=== PATIENT | female | born 1935 | race Caucasian/White ===

== ENCOUNTER 2018-07-05 08:56 | Observation (INO) | payer MEDICARE ==
[~2018-07-05] VITALS: Ht 170.2 cm; Wt 62.7 kg
--- NOTE | 2018-07-05 09:08 | NUR ---
BIB [facility] FROM [facility]. PT W/ EPIGASTRIC/SUB STERNAL CP. PT PRESENTS NOW WITH NO CP, VSS, ALL MONITORS PLACED. DR ENAMORADO AT BEDSIDE, ASSESSMENT REVIEWED AND ORDERS REC'D. PT CALL LIGHT W/I REACH
[2018-07-05] MEDS ORDERED: OMEP20TA62 PO (09:09)
[2018-07-05] MEDS ORDERED: SIMV20TA3 PO (09:09)
[2018-07-05] MEDS ORDERED: TELM1TAB25 PO (09:09)
[2018-07-05] MEDS ORDERED: HYDR-3307 PO (09:09)
--- NOTE | 2018-07-05 09:09 | NUR ---
Patient brought in by EMS as a transfer from [place]. Initially, patient was elevated for chest pain as she reported epigastric abdominal pain intermittently x2 weeks worsening beginning yesterday and becoming intense at 0300 this morning. Patient reports pain is often worse after eating. Patient states she was diagnosed with liver cirrhosis 4 months ago and stopped drinking alcohol in April 2018. Patient arrives alert and appropriate, no apparent distress, denies pain at this time. IV x2 established prior to arrival. Patient received aspirin 325mg prior to arrival, nitroglycerin 0.4mg, zofran 4mg IV push as reported by EMS. Continuous blood pressure, SPO2 and cardiac monitoring in place, call dominguez withinr each. Dr. Tejeda at bedside evaluating patient.
--- NOTE | 2018-07-05 09:49 | NUR ---
bs report from jerson Garcia. pt resting in room. no needs at this time. call light within reach.
--- NOTE | 2018-07-05 09:58 | NUR ---
per edmd, ok to have water. water provided.
[2018-07-05 10:01] LABS: INTERNATIONAL NORMALIZED RATIO 0.96 (0.93-1.1); PROTHROMBIN TIME 10.1 Seconds (9.6-11.5)
[2018-07-05 10:12] LABS: TROPONIN I < 0.015 ng/mL (0.000-0.045)
[2018-07-05] MEDS ORDERED: ONDANSETRON 2MG/ML, 2ML IVPush PRN (10:30)
[2018-07-05] MEDS ORDERED: ACETAMINOPHEN 325 MG TABLET PO PRN (10:30)
[2018-07-05] MEDS ORDERED: FAMOTIDINE 20 MG/2 ML IVPush SCH (10:30)
[2018-07-05] MEDS ORDERED: LABETALOL 5MG/ML, 20ML IVPush PRN (10:30)
[2018-07-05] MEDS ORDERED: hydrALAzine 20 MG/ML, 1ML IVPush PRN (10:30)
[2018-07-05 11:02] LABS: ALANINE AMINOTRANSFERASE 294 U/L (12-78); ALBUMIN 3.2 g/dL (3.4-5.0); BILIRUBIN, DIRECT 3.5 mg/dL (0.1-0.2)
[2018-07-05 11:06] LABS: ALKALINE PHOSPHATASE 183 U/L (45-117); BILIRUBIN,TOTAL 4.5 mg/dL (0.2-1.0); TOTAL PROTEIN 6.6 g/dL (6.4-8.2); TROPONIN I < 0.015 ng/mL (0.000-0.045)
[2018-07-05 11:37] VITALS: BP 106/65
[2018-07-05] MEDS ORDERED: FAMOTIDINE 20 MG TABLET ONE (12:10)
[2018-07-05] MEDS: FAMOTIDINE 20 MG TABLET PO SCH ×2 (12:13→21:00)
[2018-07-05 13:03] VITALS: BP 104/73
[2018-07-05] MEDS ORDERED: REGADENOSON 0.4 MG/5 ML SYRINGE ONE (13:46)
[2018-07-05 16:23] LABS: TROPONIN I < 0.015 ng/mL (0.000-0.045)
[2018-07-05 20:08] VITALS: BP 107/71
[2018-07-05] MEDS ORDERED: SIMVASTATIN 20 MG TABLET PO SCH (21:00)
[2018-07-06 03:20] VITALS: BP 96/60
[2018-07-06 05:44] LABS: BASOPHILS # (AUTO) 0.01 x10^3/uL (0-0.1); BASOPHILS % (AUTO) 0 % (0-1); EOSINOPHILS # (AUTO) 0.04 x10^3/uL (0-0.4); EOSINOPHILS % (AUTO) 1 % (1-7); LYMPHOCYTES # (AUTO) 0.77 x10^3/uL (1-3.4); LYMPHOCYTES % (AUTO) 13 % (22-44); MD NO; MEAN CORPUSCULAR HEMOGLOBIN 32.3 pg (27.0-34.8); MEAN CORPUSCULAR HGB CONC 33.5 g/dL (32.4-35.8); MEAN CORPUSCULAR VOLUME 96.5 fL (80-100); MEAN PLATELET VOLUME 8.1 fL (7.4-10.4); MONOCYTES # (AUTO) 0.57 x10^3/uL (0.2-0.8); MONOCYTES % (AUTO) 9 % (2-9); NEUTROPHILS # (AUTO) 4.72 x10^3/uL (1.8-6.8); NEUTROPHILS % (AUTO) 77 % (42-75); PLATELET COUNT 242 x10^3/uL (130-400); RED BLOOD COUNT 4.54 x10^6/uL (3.82-5.3); RED CELL DISTRIBUTION WIDTH 12.8 % (9.6-15.2)
[2018-07-06 05:57] LABS: ANION GAP 7 mmol/L (5-15); CALCIUM 8.7 mg/dL (8.5-10.1); CHLORIDE 104 mmol/L (98-107); CREATININE 1.09 mg/dL (0.55-1.02)
[2018-07-06] MEDS ORDERED: OMEPRAZOLE 20 MG CAPSULE.DR PO SCH (07:30)
[2018-07-06 08:00] VITALS: BP 113/78
[2018-07-06] MEDS: FAMOTIDINE 20 MG TABLET PO SCH (08:12)
[2018-07-06 08:13] LABS: ALBUMIN 2.8 g/dL (3.4-5.0); BILIRUBIN, DIRECT 0.8 mg/dL (0.1-0.2)
[2018-07-06 08:15] LABS: BILIRUBIN,TOTAL 1.8 mg/dL (0.2-1.0)
[2018-07-06] MEDS ORDERED: HYDROCHLOROTHIAZIDE 12.5 MG CAPSULE PO SCH (09:00)
[2018-07-06] MEDS ORDERED: LOSARTAN 50MG TABLET PO SCH (09:00)
== END 2018-07-06 12:05 | disposition home or self-care (01) ==
LOC: ED 10:03 → EDIP 10:04 → ED 10:48 → 5SO 11:33 → DCLOUNGE 07-06 11:54
PROVIDERS: ADMIT Hospitalist; ATTEND Hospitalist
DX: R07.89 Other chest pain (principal); E78.5 Hyperlipidemia, unspecified; I10 Essential (primary) hypertension; K70.40 Alcoholic hepatic failure without coma; K74.60 Unspecified cirrhosis of liver; N17.9 Acute kidney failure, unspecified; Z87.891 Personal history of nicotine dependence; Z90.710 Acquired absence of both cervix and uterus
CPT/HCPCS: 36415; 76700; 78452; 80048; 80076; 83690; 83735; 84100; 84443; 84484; 85025; 85610; 85730; 93005; 93017; 93306; 99284; A9502; C9898; G0378; J2785

== ENCOUNTER 2018-10-06 12:31 | Day surgery (SDC) | payer MEDICARE ==
[~2018-10-06] VITALS: Ht 172.7 cm; Wt 56.5 kg
[~2018-10-06 12:31] MED LIST: HYDR-36 PO; OMEP20TA62 PO; SIMV20TA3 PO; TELM1TAB25 PO
[2018-10-06 13:08] VITALS: BP 157/104
[2018-10-06] MEDS ORDERED: tylenol pm PO (13:12)
[2018-10-06] MEDS ORDERED: FENTANYL PF 100 MCG/2ML ONE (16:20)
[2018-10-06] MEDS ORDERED: GLYCOPYRROLATE 0.2MG/1ML, 5ML ONE (17:00)
[2018-10-06] MEDS ORDERED: ONDANSETRON 2MG/ML, 2ML ONE (17:00)
[2018-10-06] MEDS ORDERED: DEXAMETHASONE 4 MG/ML, 1ML ONE (17:00)
[2018-10-06] MEDS ORDERED: NEOSTIGMINE 1 MG/ML, 10ML ONE (17:00)
[2018-10-06] MEDS ORDERED: ROCURONIUM 10MG/ML,5ML ONE (17:00)
[2018-10-06] MEDS ORDERED: PROPOFOL 10 MG/ML, 20ML ONE (17:00)
[2018-10-06] MEDS ORDERED: SUCCINYLCHOLINE 20 MG/ML, 10ML ONE (17:00)
[2018-10-06] MEDS ORDERED: CEFAZOLIN 1,000 MG ONE (17:00)
[2018-10-06] MEDS ORDERED: hydrALAzine 20 MG/ML, 1ML ONE (17:24)
[2018-10-06] MEDS ORDERED: LABETALOL 5 MG/ML SYR. (IV ONLY) IV PRN ×2 (18:00)
[2018-10-06] MEDS ORDERED: LABETALOL 5MG/ML, 20ML IV PRN (18:00)
[2018-10-06] MEDS ORDERED: hydrALAzine 20 MG/ML, 1ML IV PRN (18:00)
== END 2018-10-06 18:45 | disposition home or self-care (01) ==
LOC: OUT 12:31
PROVIDERS: ATTEND Internal Medicine Gastroenterology
DX: K83.8 Other specified diseases of biliary tract (principal); K21.9 Gastro-esophageal reflux disease without esophagitis; J44.9 Chronic obstructive pulmonary disease, unspecified; I10 Essential (primary) hypertension; Z79.899 Other long term (current) drug therapy; Z88.0 Allergy status to penicillin; Z99.81 Dependence on supplemental oxygen; Z87.891 Personal history of nicotine dependence; Z86.010 Personal history of colon polyps; Z90.49 Acquired absence of other specified parts of digestive tract; Z90.710 Acquired absence of both cervix and uterus
CPT/HCPCS: 43259; 93005; J0330; J0360; J0690; J1100; J2405; J2704; J2710; J3010